=== PATIENT | male | born 1935 | race Caucasian/White ===

== ENCOUNTER → 2019-05-11 10:48 | Outpatient (CLI) | payer MEDICARE, SELFPAY ==
[2019-05-11 11:22] LABS: INR 1.89 (0.9-1.1); Prothrombin Time 19.1 seconds (9.4-11.8)
[2019-05-11 17:11] LABS: Amphetamine/Metha Screen,Urine Negative ng/mL (<1000); Barbiturates Screen,Urine Negative ng/mL (<200); Benzodiazepines Screen,Urine Positive ng/mL (<200); Cannabinoid Screen,Urine Negative ng/mL (<50); Cocaine Screen,Urine Negative ng/mL (<300); Methadone Screen,Urine Negative ng/mL (<300); Opiate Screen,Urine Negative ng/mL (<300); Phencyclidine Screen,Urine Negative ng/mL (<25)
== END ==
PROVIDERS: Visit Provider Internal Medicine
DX: Z79.899 Other long term (current) drug therapy (principal); Z79.01 Long term (current) use of anticoagulants
CPT/HCPCS: 36415; 80305; 85610

== ENCOUNTER → 2019-10-17 11:28 | Outpatient (CLI) | payer MEDICARE, SELFPAY ==
[2019-10-17 13:06] LABS: INR 2.15 (0.9-1.1); Prothrombin Time 21.6 seconds (9.4-11.8)
[2019-10-17 13:10] LABS: Benzodiazepines Screen,Urine Positive ng/ml (<200)
[2019-10-17 13:11] LABS: Amphetamine/Metha Screen,Urine Negative ng/ml (<1000)
[2019-10-17 13:12] LABS: Barbiturates Screen,Urine Negative ng/ml (<200); Cannabinoid Screen,Urine Negative ng/ml (<50)
[2019-10-17 13:13] LABS: Cocaine Screen,Urine Negative ng/ml (<300); Methadone Screen,Urine Negative ng/ml (<300)
[2019-10-17 13:14] LABS: Opiate Screen,Urine Negative ng/ml (<300)
[2019-10-17 13:15] LABS: Phencyclidine Screen,Urine Negative ng/ml (<25)
== END ==
PROVIDERS: Visit Provider Internal Medicine
DX: E78.2 Mixed hyperlipidemia (principal); F41.9 Anxiety disorder, unspecified; I11.0 Hypertensive heart disease with heart failure; I48.0 Paroxysmal atrial fibrillation; I50.22 Chronic systolic (congestive) heart failure; Z79.01 Long term (current) use of anticoagulants; Z95.810 Presence of automatic (implantable) cardiac defibrillator; Z79.899 Other long term (current) drug therapy
CPT/HCPCS: 36415; 80305; 85610

== ENCOUNTER → 2020-04-17 11:10 | Outpatient (CLI) | payer MEDICARE, SELFPAY ==
[2020-04-17 14:32] LABS: Barbiturates Screen,Urine Negative ng/ml (<200)
[2020-04-17 14:33] LABS: Amphetamine/Metha Screen,Urine Negative ng/ml (<1000); Benzodiazepines Screen,Urine Positive ng/ml (<200)
[2020-04-17 14:34] LABS: Cannabinoid Screen,Urine Negative ng/ml (<50)
[2020-04-17 14:35] LABS: Cocaine Screen,Urine Negative ng/ml (<300); Methadone Screen,Urine Negative ng/ml (<300)
[2020-04-17 14:36] LABS: Opiate Screen,Urine Negative ng/ml (<300); Phencyclidine Screen,Urine Negative ng/ml (<25)
== END ==
PROVIDERS: Visit Provider Internal Medicine
DX: E78.5 Hyperlipidemia, unspecified (principal); F11.90 Opioid use, unspecified, uncomplicated; F41.9 Anxiety disorder, unspecified; I11.9 Hypertensive heart disease without heart failure; I48.91 Unspecified atrial fibrillation; I50.20 Unspecified systolic (congestive) heart failure; R60.9 Edema, unspecified; Z79.01 Long term (current) use of anticoagulants; Z79.899 Other long term (current) drug therapy; Z95.810 Presence of automatic (implantable) cardiac defibrillator
CPT/HCPCS: 80305

== ENCOUNTER → 2020-10-16 12:30 | Outpatient (CLI) | payer MEDICARE, SELFPAY ==
[2020-10-16 14:35] LABS: Amphetamine/Metha Screen,Urine Negative ng/ml (<1000)
[2020-10-16 14:36] LABS: Barbiturates Screen,Urine Negative ng/ml (<200); Benzodiazepines Screen,Urine Positive ng/ml (<200)
[2020-10-16 14:37] LABS: Cannabinoid Screen,Urine Negative ng/ml (<50)
[2020-10-16 14:38] LABS: Cocaine Screen,Urine Negative ng/ml (<300)
[2020-10-16 14:39] LABS: Methadone Screen,Urine Negative ng/ml (<300)
[2020-10-16 14:40] LABS: Opiate Screen,Urine Negative ng/ml (<300); Phencyclidine Screen,Urine Negative ng/ml (<25)
== END ==
PROVIDERS: Visit Provider Internal Medicine
DX: E78.2 Mixed hyperlipidemia (principal); F41.9 Anxiety disorder, unspecified; I11.0 Hypertensive heart disease with heart failure; I48.0 Paroxysmal atrial fibrillation; I50.22 Chronic systolic (congestive) heart failure; Z79.01 Long term (current) use of anticoagulants; Z79.899 Other long term (current) drug therapy; Z95.810 Presence of automatic (implantable) cardiac defibrillator
CPT/HCPCS: 80305

== ENCOUNTER → 2021-04-16 11:19 | Outpatient (CLI) | payer MEDICARE, SELFPAY ==
[2021-04-16 11:55] LABS: Barbiturates Screen,Urine Negative ng/ml (<200)
[2021-04-16 11:56] LABS: Amphetamine/Metha Screen,Urine Negative ng/ml (<1000); Benzodiazepines Screen,Urine Positive ng/ml (<200)
[2021-04-16 11:57] LABS: Methadone Screen,Urine Negative ng/ml (<300)
[2021-04-16 11:58] LABS: Cannabinoid Screen,Urine Negative ng/ml (<50); Cocaine Screen,Urine Negative ng/ml (<300)
[2021-04-16 11:59] LABS: Opiate Screen,Urine Negative ng/ml (<300); Phencyclidine Screen,Urine Negative ng/ml (<25)
== END ==
PROVIDERS: Visit Provider Internal Medicine
DX: Z79.899 Other long term (current) drug therapy (principal)
CPT/HCPCS: 80305

== ENCOUNTER → 2021-10-14 12:51 | Outpatient (CLI) | payer MEDICARE, SELFPAY ==
[2021-10-14 13:50] LABS: Chloride 100 mmol/L (98-107); Potassium 4.1 mmoL/L (3.5-5.1); Sodium 139 mmol/L (136-145)
[2021-10-14 13:52] LABS: Alanine Aminotransferase 16 U/L (12-78); Aspartate Amino Transferase 26 U/L (17-59); Bilirubin,Direct 0.3 mg/dl (0.0-0.4); Bilirubin,Indirect 1.3 mg/dL (0.0-0.9); Bilirubin,Total 1.6 mg/dl (0.2-1.3); Bilirubin,Unconjugated 1.3 mg/dL (0.0-1.1); Blood Urea Nitrogen 26 mg/dl (9-20); Estimated Glomerular Filt Rate 58 ml/min (>60); GFR (African American) 70 ML/MIN (>60)
[2021-10-14 13:53] LABS: Albumin Level 4.5 g/dl (3.5-5.0); Alkaline Phosphatase 75 U/L (38-126); Anion Gap 15.1 mEq/L (5-15); Calcium 9.9 mg/dl (8.4-10.2); Carbon Dioxide 28 mmol/L (22.0-30.0); Cholesterol 107 mg/dl (140-200); Glucose 118 mg/dl (74-100); HDL Cholesterol 27 mg/dl (40-60); Total Protein,Serum 7.2 g/dl (6.3-8.2); Triglycerides 86 mg/dl (30-150); VLDL Cholesterol 17 mg/dL (0-40)
[2021-10-14 14:04] LABS: Direct LDL Cholesterol 68.31 mg/dL (100-129)
[2021-10-14 14:21] LABS: Thyroid Stimulating Hormone 8.88 uIU/mL (0.465-4.68)
[2021-10-14 15:50] LABS: Amphetamine/Metha Screen,Urine Negative ng/ml (<1000)
[2021-10-14 15:51] LABS: Barbiturates Screen,Urine Negative ng/ml (<200)
[2021-10-14 15:52] LABS: Benzodiazepines Screen,Urine Positive ng/ml (<200); Cannabinoid Screen,Urine Negative ng/ml (<50)
[2021-10-14 15:53] LABS: Cocaine Screen,Urine Negative ng/ml (<300); Methadone Screen,Urine Negative ng/ml (<300)
[2021-10-14 15:54] LABS: Opiate Screen,Urine Negative ng/ml (<300)
[2021-10-14 15:55] LABS: Phencyclidine Screen,Urine Negative ng/ml (<25)
[2021-10-14 19:29] LABS: Basophils # 0.1 K/mm3 (0-0.2); Basophils % 0.8 % (0.1-2.0); Eosinophils # 0.3 K/mm3 (0.0-0.4); Eosinophils % 3.1 % (0.1-12.0); Hematocrit 46.5 % (42.0-52.0); Hemoglobin 15.2 g/dL (14.1-18.0); Lymphocytes # 1.3 K/mm3 (0.7-4.5); Lymphocytes % 15.7 % (10-50); Mean Corpuscular HGB Conc 32.7 g/dL (31.8-35.4); Mean Corpuscular Hemoglobin 30.7 pg (27.0-31.2); Mean Corpuscular Volume 93.7 fl (80-94); Mean Platelet Volume 11.6 fl (7.4-10.4); Monocytes # 0.6 K/mm3 (0.1-1.0); Monocytes % 6.5 % (1.7-9.3); Neutrophils # 6.2 K/mm3 (1.8-7.8); Platelet Count 210 K/mm3 (142-424); Red Blood Count 4.96 M/mm3 (4.60-6.20); Red Cell Distribution Width 14.4 % (11.5-17.5); White Blood Count 8.4 K/mm3 (4.8-10.8)
== END ==
PROVIDERS: Visit Provider Internal Medicine
DX: Z79.01 Long term (current) use of anticoagulants (principal); Z95.810 Presence of automatic (implantable) cardiac defibrillator; Z79.899 Other long term (current) drug therapy
CPT/HCPCS: 36415; 80048; 80061; 80076; 80305; 83735; 84439; 84443; 85025

== ENCOUNTER → 2021-11-07 12:28 | Outpatient (CLI) | payer MEDICARE, SELFPAY ==
--- NOTE | 2021-11-07 12:32 | CA_ITS ---
APPROVED REPORT EXAM: Comprehensive 2D, Doppler, and color-flow Echocardiogram Parts Classifier: Shannan Herrera CRT Ht: 6 ft 0 in Wt: 166lbs BSA: 1.97 BP: 109/71 mmHg Indications: Congestive Heart Failure, Atrial Fibrillation, Hyperlipidemia, Hypertension/HDD, AICD, Last ef 25-30%. Prelim called to Cardiology Office instructed to send pt home. 2D Dimensions LVOT 1.97 cm (M/F) 1.5-2.5 LA Volume 73.80 mL LA Volume Index 37.50 mL/m2 (M/F) 16-34 M-Mode Dimensions RVDd 4.49 cm (0.9-2.6) LA Diam 5.60 cm (1.9-4.0) LVDd 6.78 cm (3.5-5.7) Ao Diam 3.72 cm (2.0-3.7) LVDs 6.14 cm (3.5-5.7) IVSd 0.92 cm (0.6-1.1) PWd 0.80 cm (0.6-1.1) EF (Teich) 20.20% FS 9.40% EDV (Teich) 237.70 mL ESV (Teich) 189.70 mL LV Diastology E Decel Time 153.00 (160-240 msec) E/A Ratio 5.26 MED E' 5.60 (< 7 cm/sec) MED A' 3.70 cm/s E'/MED E' Ratio 21.89 (>14) LAT E' 8.10 (<10 cm/sec) LAT A' 3.10 cm/s E/LAT E' Ratio 15.14 (>14) Aortic Valve AI PHT 535.00 ms AO Peak GR. 3.50 mmHg Mitral Valve MV E Max Arthur. 123.00 (40-130 cm/s) MV A Velocity 23.00 (40-130 cm/s) E/A Ratio 5.26 MV Decel. Time 153.00 (160-240 ms) MV PHT 45.00 ms Pulmonary Valve PV Peak Velocity 173.00 (50-150 cm/s) Tricuspid Valve TR P. Velocity 363.00 cm/s RAP Estimate 10.00 mmHg RVSP 62.70 mmHg Left Ventricle Left atrium is moderately enlarged, left ventricle is moderately dilated, severe reduction left ventricular systolic function, estimated ejection fraction 15 to 20% left ventricle is globally hypokinetic, Doppler evidence of raise left ventricular end-diastolic as well as left atrial pressure. Low cardiac output state is also seen. Right Ventricle Right atrium and right ventricle moderately enlarged, contractility right ventricle is mildly reduced, there is pacemaker lead seen in the right ventricle. Aortic Valve Aortic valve is minimally thickened and fibrosed there is no aortic stenosis, there is trace aortic insufficiency. Mitral Valve Mitral valve is minimally thickened and there is moderate mitral regurgitation. Tricuspid Valve Tricuspid valve is grossly normal, moderate tricuspid regurgitation seen, calculated right ventricular systolic pressure of 62 mmHg. Pulmonic Valve Pulmonic valve is poorly visualized. Great Vessels Aortic root is normal size. Inferior vena cava is poorly visualized. Pericardium No significant pericardial effusion noted. Conclusion 1. Biatrial enlargement, dilated right and left ventricle, severely reduced left ventricular systolic function, estimated ejection fraction 15 to 20% left ventricle is globally hypokinetic, Doppler evidence of raise left ventricular end-diastolic, left atrial pressure and low cardiac output state. 2. Moderately enlarged right ventricle with mild reduced contractility. 3. Trace aortic, moderate mitral and tricuspid regurgitation, calculated right ventricular systolic pressure 62 mmHg. 4. No significant pericardial effusion. 5. Inferior vena cava is poorly visualized. Electronically signed by : Derick Jones MD 11/08/2021 13:20:38
[2021-11-07 13:51] LABS: Anion Gap 16.6 mEq/L (5-15); Blood Urea Nitrogen 31 mg/dl (9-20); Calcium 9.6 mg/dl (8.4-10.2); Carbon Dioxide 29 mmol/L (22.0-30.0); Chloride 97 mmol/L (98-107); Estimated Glomerular Filt Rate 48 ml/min (>60); GFR (African American) 58 ML/MIN (>60); Glucose 137 mg/dl (74-100); Potassium 4.6 mmoL/L (3.5-5.1); Sodium 138 mmol/L (136-145)
== END ==
PROVIDERS: Visit Provider Internal Medicine
DX: I50.9 Heart failure, unspecified (principal); R06.02 Shortness of breath
CPT/HCPCS: 36415; 80048; 93306